=== PATIENT | female | born 1960 | race Caucasian/White ===

== ENCOUNTER → 2023-08-02 12:18 | Outpatient (REF) | payer MEDICARE, MEDICAID, SELFPAY | LOC: HWWDC 12:18 | PROVIDERS: ATTENDING PHYSICIAN Radiology Radiation Oncology; FAMILY PHYSICIAN Nurse Practitioner | DX: Z12.31 Encounter for screening mammogram for malignant neoplasm of breast (principal) | CPT/HCPCS: 77063; 77067 ==

== ENCOUNTER → 2023-08-23 09:27 | Outpatient (REF) | payer MEDICARE, MEDICAID, SELFPAY | LOC: WDC 09:27 | PROVIDERS: ATTENDING PHYSICIAN Radiology Radiation Oncology; FAMILY PHYSICIAN Nurse Practitioner | DX: R92.8 Other abnormal and inconclusive findings on diagnostic imaging of breast (principal) | CPT/HCPCS: 76642 ==

== ENCOUNTER → 2023-08-30 08:54 | Outpatient (REF) | payer MEDICARE, MEDICAID, SELFPAY ==
--- NOTE | 2023-08-30 15:03 | OID.BR.INTR ---
[facility] Navigator - Initial
- -
Date of Contact: 08/30/23
Met with patient. Patient given written information on navigator services and support services available at [facility]. Will follow up as needed per protocol.
== END ==
LOC: WDC 08:54
PROVIDERS: ATTENDING PHYSICIAN Radiology Radiation Oncology; FAMILY PHYSICIAN Nurse Practitioner
DX: N63.22 Unspecified lump in the left breast, upper inner quadrant (principal)
CPT/HCPCS: 88305; 19083; 19084; 77065; 88341; 88342; A4648

== ENCOUNTER 2024-06-18 06:15 | Day surgery (SDC) | payer MEDICARE, MEDICAID, SELFPAY | END 2024-06-18 09:03 | disposition home or self-care (01) | LOC: GI 06:15 | PROVIDERS: ATTENDING PHYSICIAN Internal Medicine | DX: Z12.11 Encounter for screening for malignant neoplasm of colon (principal); D12.0 Benign neoplasm of cecum | CPT/HCPCS: 45380; 88305 ==

== ENCOUNTER → 2024-08-03 06:48 | Outpatient (REF) | payer MEDICARE, MEDICAID, SELFPAY | LOC: HWWDC 06:48 | PROVIDERS: ATTENDING PHYSICIAN Radiology Radiation Oncology; FAMILY PHYSICIAN Nurse Practitioner | DX: Z85.3 Personal history of malignant neoplasm of breast (principal) | CPT/HCPCS: 77063; 77067 ==

== ENCOUNTER → 2025-04-12 07:53 | Outpatient (REF) | payer MEDICARE, MEDICAID, SELFPAY | LOC: HWRAD 07:53 | PROVIDERS: ATTENDING PHYSICIAN Internal Medicine Hematology & Oncology; FAMILY PHYSICIAN Nurse Practitioner | DX: Z13.820 Encounter for screening for osteoporosis (principal); Z79.811 Long term (current) use of aromatase inhibitors; C50.912 Malignant neoplasm of unspecified site of left female breast | CPT/HCPCS: 77080 ==

== ENCOUNTER 2025-04-18 10:29 | Emergency (ER) | payer MEDICARE, MEDICAID, SELFPAY ==
[2025-04-18 10:31] VITALS: BP 159/91
--- NOTE | 2025-04-18 11:07 | ED.GENMED ---
History of Present Illness
General
Chief Complaint: DVT/Possible Blood Clot
Time Seen by Provider: 04/18/25 11:07
History of Present Illness
History of Present Illness:
FOCUSED PAST MEDICAL HISTORY
- High blood pressure
REVIEW OF OLD RECORDS
- Left lower extremity ultrasound showed no evidence of DVT in 2021
Note:
CHIEF COMPLAINT(S)
Left leg swelling and warmth.
HISTORY OF PRESENT ILLNESS
The patient is a 64-year-old female with a history of deep vein thrombosis (DVT) diagnosed in 2019, for which she was initially treated with apixaban ([place]). She is currently not on any anticoagulant therapy but is taking low-dose aspirin. The
patient presents with concerns about her left leg, which has an area of induration, erythema, and warmth on the medial aspect of the left marquez. The patient denies experiencing any respiratory difficulties. On physical examination, a firm area
suggestive of a hematoma was noted. Pulsations in the dorsalis pedis artery are palpable, indicating good arterial circulation.
EXTERNAL RECORDS REVIEWED
Records indicate a prior ultrasound of the leg from 2021, which showed no abnormalities at that time.
PHYSICAL EXAM
General: Alert, no acute distress. Evidence of mild intellectual development disorder.
Skin: Warm, dry.
Head: Normocephalic, atraumatic.
Neck: Supple, trachea midline.
Eyes, Ears, Nose, Mouth, and Throat: Oral mucosa moist.
Cardiovascular: Normal peripheral perfusion, no edema. Pulsations are palpated at the dorsalis pedis artery.
Respiratory: Respirations are non-labored.
Gastrointestinal: Abdomen nondistended.
Musculoskeletal: Firm area on the medial aspect of the left marquez, suggestive of hematoma.
Neurological: Awake and alert, moving all extremities equally
Psychiatric: Cooperative, appropriate mood and affect.
PROBLEM LIST
Acute Problems:
- Left leg swelling and erythema with induration, suggesting possible hematoma or infection.
PLAN
1. Arrange for a lower extremity ultrasound to rule out DVT or other vascular issues.
2. If the ultrasound shows no evidence of a clot, initiate antibiotic therapy for a potential infection.
3. Reevaluate post-ultrasound findings and adjust the treatment plan accordingly.
DIFFERENTIAL DIAGNOSIS
The Differential Diagnosis includes, in no particular order and is not limited to:
- Deep vein thrombosis (DVT)
- Cellulitis
- Hematoma
- Superficial vein thrombosis
- Lymphedema
- Lipodermatosclerosis
- Compartment syndrome
- Rheumatoid arthritis flare
- Bakers cyst rupture
- Osteomyelitis
Disposition:
SUMMARY OF ENCOUNTER
The patient, a 64-year-old female with a history of deep vein thrombosis, presented to the emergency department with concerns of left leg swelling, erythema, and warmth. An ultrasound of the lower extremity was conducted to rule out a possible deep
vein thrombosis. The ultrasound revealed no evidence of a DVT. Based on these findings and the clinical presentation, the patient was diagnosed with likely cellulitis.
DISPOSITION
Patient was discharged with a plan to start antibiotic therapy for cellulitis.
PLAN
Initiate antibiotic therapy to treat cellulitis. Follow-up with primary care or return to the emergency department if symptoms worsen or do not improve.
INDEPENDENT REVIEW OF LABS AND INTERPRETATION OF TESTS
My independent interpretation of the lower extremity ultrasound shows no evidence of deep vein thrombosis.
MEDICATION RECONCILIATION
Antibiotics were prescribed upon discharge for likely cellulitis.
MEDICAL DECISION MAKING
Chronic conditions affecting care: History of deep vein thrombosis.
Data:
-Category 1:
Non-emergency department records reviewed: Records from 2021 ultrasound.
My independent interpretation of lower extremity ultrasound: No evidence of DVT.
Risk:
Prescription medication was prescribed for the treatment of cellulitis.
DIAGNOSIS
Cellulitis (ICD-10: L03.116)
RADIOLOGY
- Ultrasound shows no evidence of DVT
-No DVT by ultrasound
- Will start antibiotics for likely cellulitis
Past History
Past History
ED Past Medical History: Other (MR)
Social History
Tobacco: Non-smoker
Phy Exam
Physical Exam
Physical Exam:
See HPI
Course
Orders/Labs/Results
Orders:
Orders
04/18/25 11:13
US Periph Venous LOWER Ext LT Urgent
Comment:
Reason For Exam: pain swelling
04/18/25 13:34
Cephalexin Monohydrate [Keflex] 500 mg PO NOW STA
Vital Signs
Initial and Last Documented VS:
Initial Vital Signs
Temp Pulse Resp BP Pulse Ox
36.4 C 88 18 159/91 95
04/18/25 10:31 04/18/25 10:31 04/18/25 10:31 04/18/25 10:31 04/18/25 10:31
Last Documented Vital Signs
Temp Pulse Resp BP Pulse Ox
36.4 C 88 18 159/91 95
04/18/25 10:31 04/18/25 10:31 04/18/25 10:31 04/18/25 10:31 04/18/25 11:08
*Pulse Oximetry
SaO2: 95
Oxygen Mode of Delivery: Room air
Patient hypoxic: no
*Critical Care Note
Total Time (30-74mins, 75-104mins- exclusive of procedures): Not Applicable
ED Attending Note
-
Portions of this chart may have been created with voice recognition software.� Occasional wrong word or��sound alike� substitutions may have occurred due to the inherent limitations of voice recognition software.
Discharge Plan
Departure
Patient Disposition: Home (Routine Discharge)
Date of Disposition: 04/18/25
Time of Disposition: 13:35
Patient with high blood pressure during this ER visit?: Yes
Discharge Problem:
Cellulitis of left leg
Instructions: Cellulitis (Skin Infection), Adult (DC), BLOOD PRESSURE
Prescriptions:
New
cephalexin 500 mg tablet
500 mg PO TID Qty: 21 0RF
No Action
amlodipine 5 MG tablet
5 mg PO DAILY
acetaminophen 325 MG tablet
650 mg PO PRN PRN (Reason: pain, temp>104)
Patient Comments:
pt hasn't used in months
irbesartan-hydrochlorothiazide 1 EACH tablet
1 ea PO DAILY
aspirin 81 MG tablet,delayed release (DR/EC)
81 mg PO DAILY
Atorvastatin
10 mg PO DAILY
Listerine
2 tsp PO BID
Clotrimazole-Betamethasone Crm
1 applic topical BID PRN (Reason: rash under breast)
Patient Comments:
pt has'nt used in over a year
Siltussin Dm Penaloza 100-10Mg/5 ml
2 tsp PO Q6 PRN (Reason: cough)
Triple Antibiotic Ointment
1 apply topical QID PRN (Reason: minor abrasions)
Patient Comments:
pt hasn't used in over a year
loperamide 2 MG capsule
2 mg PO Q4H PRN (Reason: diarrhea)
Patient Comments:
pt hasn't used in months
hydrocortisone 1 APPLIC cream
1 applic topical BID PRN (Reason: rash lower extrem)
Patient Comments:
pt hasn't used in months
Refresh Optive 15 ML drops
1 drp BOTH EYES TID
Hydrocerin Lotion
1 dose topical PRN PRN (Reason: skin issues)
Patient Comments:
pt hasn't used in months
Sunscreen Spf30
1 dose topical PRN PRN (Reason: sun expozure)
Patient Comments:
pt hasn't used in over year
Therapeutic Mineral Ice
1 dose topical TID PRN (Reason: joint pain)
spironolactone 25 mg Tablet
25 mg PO DAILY
letrozole 2.5 mg Tablet
2.5 mg PO DAILY
escitalopram oxalate [Lexapro] 10 mg Tablet
10 mg PO DAILY
calcium citrate-vitamin D3 [Citracal plus D] 250 mg-5 mcg (200 unit) Tablet
1 tab PO BID
melatonin 5 mg Capsule
5 mg PO HS
triamcinolone acetonide [Nasacort] 55 mcg Aerosol,[place]
1 spray INTRANASAL DAILY
Rx Instructions:
administer into each nostril
Referrals:
NONE,* [Family Provider, Internal Medicine]
Activity Restrictions/Additional Instructions:
Ultrasound shows no sign of DVT. I sent a prescription for Keflex to your pharmacy. Return here if worse or other concerns. Try to keep the leg elevated is much as possible.
Interventions
Interventions:
*Risk Screen - Suicide Last Done: 04/18/25 10:31
Discharge Date and Time
Print Language: SLOVAK
[2025-04-18] MEDS: KEFLEX 500 MG PO (13:55)
[2025-04-18 13:57] VITALS: BP 148/86
== END 2025-04-18 13:58 | disposition home or self-care (01) ==
LOC: EMR 10:29
PROVIDERS: EMERGENCY PHYSICIAN Emergency Medicine
DX: L03.116 Cellulitis of left lower limb (principal); I10 Essential (primary) hypertension; Z79.82 Long term (current) use of aspirin; Z86.718 Personal history of other venous thrombosis and embolism
CPT/HCPCS: 99284; 93971